=== PATIENT | female | born 1995 | race Two or more races ===

== ENCOUNTER 2024-06-21 18:12 | Emergency (ER) | payer MEDICAID, OTHER | END 2024-06-21 18:59 | disposition left against medical advice (07) | LOC: ER 18:12 | DX: I10 Essential (primary) hypertension (principal); Z53.21 Procedure and treatment not carried out due to patient leaving prior to being seen by health care provider ==

== ENCOUNTER 2024-07-14 16:24 | Inpatient (IN) | payer MEDICAID ==
[~2024-07-14] VITALS: Ht 170.2 cm; Wt 124.6 kg
[2024-07-14 16:51] LABS: Basophils # (auto) 0 10 ^3/uL (0-0.2); Basophils % (auto) 0.4 % (0.0-2.0); Eosinophils # (auto) 0 10 ^3/uL (0-0.8); Eosinophils % (auto) 0.5 % (0.0-7.0); Hemoglobin 14.9 g/dL (12.2-16.2); Lymphocytes # (auto) 2.3 10 ^3/uL (0.4-5.4); Lymphocytes % (auto) 30.4 % (10.0-50.0); Mean Corpuscular Hemoglobin 27.8 pg (28.0-32.0); Mean Corpuscular Volume 81.9 fL (80.0-100.0); Monocytes # (auto) 0.5 10 ^3/uL (0-1.3); Monocytes % (auto) 6.6 % (0.0-12.0); Neutrophils # (auto) 4.7 10 ^3/uL (1.6-8.6); Neutrophils % (auto) 62.1 % (37.0-80.0); Platelet Count (auto) 228 10^3/uL (140-450); Red Blood Cells 5.37 10^6/uL (4.0-5.20); Red Cell Distribution Width 15.7 % (11.8-14.3); White Blood Cell 7.6 10^3/uL (4.4-10.8)
[2024-07-14 17:02] LABS: Chloride 102 mmol/L (98-107); Potassium 3.8 mmol/L (3.5-5.1); Sodium 139 mmol/L (136-145)
[2024-07-14 17:03] LABS: Anion Gap 13 (5-15); Carbon Dioxide 24 mmol/L (20-31)
--- NOTE | 2024-07-14 17:03 | DVH ---
INDICATION: palpitations TECHNIQUE: Frontal view of the chest. COMPARISON: None FINDINGS: Findings:. The heart and mediastinal contours are grossly unremarkable. There is no evidence of pleu ral disease. The lungs are clear. The bony structures of the chest are intact without fracture. IMPRESSION: 1. No evidence of acute disease.
[2024-07-14 17:06] LABS: Calcium 10.5 mg/dL (8.7-10.4)
[2024-07-14 17:08] LABS: BUN/Creatinine Ratio 17.5 (10.0-20.0); Blood Urea Nitrogen 14 mg/dL (9-23); Glucose 101 mg/dL (74-106)
--- NOTE | 2024-07-14 17:09 | ED.PDOC ---
HPI Comments 29 year old female presents to the ED with chief complaint of palpitations. Patient reports that she was prescribed Hydrochlorothiazide after giving to her baby three months ago due to having HTN. Patient relays that she took 12.5mg of Hydrochlorothiazide today and started to experience palpitations. Patient denies any chest pain, SOB, dizziness, headache, N/V, numbness, weakness, or tingling. Chief Complaint: Palpitations Time Seen by MD: 17:03 Reviewed Notes: Nurses Notes, Medications, Allergies Allergies: Coded Allergies: NO KNOWN ALLERGIES (Unverified , 07/14/24) Information Source: Patient Mode of Arrival: Ambulatory Severity: Mild Timing: Hours Duration: Since onset Prehospital treatment: None Cardiac Risk Factors: HTN Associated Signs and Symptoms: Palpitations Past Medical History PAST MEDICAL HISTORY: HTN Surgical History: Denies all surgeries HEAD TRIMMER History: Denies all HEAD TRIMMER Hx Family History Family History: Reviewed,noncontributory to illness Social History Smoker: Non-Smoker Alcohol: Denies ETOH Use Drugs: Denies Drug Use Lives In: Home Constitutional: denies: chills, diaphoresis, fatigue, fever, malaise, sweats, weakness, others EENTM: denies: blurred vision, double vision, ear bleeding, ear discharge, ear drainage, ear pain, ear ringing, eye pain, eye redness, hearing loss, mouth pain, mouth swelling, nasal discharge, nose bleeding, nose congestion, nose pain, photophobia, tearing, throat pain, throat swelling, voice changes, others Respiratory: denies: cough, hemoptysis, orthopnea, SOB at rest, shortness of breath, SOB with excertion, stridor, wheezing, others Cardiovascular: reports: palpitations; denies: chest pain, dizzy spells, diaphoresis, Dyspnea on exertion, edema, irregular heart beat, left arm pain, lightheadedness, PND, syncope, others Gastrointestinal: denies: abdomen distended, abdominal pain, blood streaked bowels, constipated, diarrhea, dysphagia, difficulty swallowing, hematemesis, melena, nausea, poor appetite, poor fluid intake, rectal bleeding, rectal pain, vomiting, others Genitourinary: denies: abnormal vagina bleeding, burning, dyspareunia, dysuria, flank pain, frequency, hematuria, incontinence, pain, , vagina discharge, urgency, others Neurological: denies: dizziness, fainting, headache, left sided numbness, left sided weakness, numbness, paresthesia, pre-existing deficit, right sided numb ness, right sided weakness, seizure, speech problems, tingling, tremors, weakness, others Musculoskeletal: denies: back pain, gout, joint pain, joint swelling, muscle pain, muscle stiffness, neck pain, others Integumetry: denies: bruises, change in color, change in hair/nails, dryness, laceration, lesions, lumps, rash, wounds, others Allergic/Immunocompromised: denies: Difficulty Healing, Frequent Infections, Hives, Itching, others Hematologic/Lymphatic: denies: anemia, blood clots, easy bleeding, easy bruising, swollen glands, others Endocrine: denies: excessive hunger, excessive sweating, excessive thirst, excessive urination, flushing, intolerance to cold, intolerance to heat, unexplained weight gain, unexplained weight loss, others Psychiatric: denies: anxiety, bipolar disorder, depression, hopeless, panic disorder, schizophrenia, sleepless, suicidal, others All Other Systems: Reviewed and Negative Physical Exam General Appearance: No Apparent Distress, Normal HEENT: Normal ENT Inspection, Pharynx Normal, TMs Normal Neck: Full Range of Motion, Non-Tender, Normal, Normal Inspection Respiratory: Chest Non-Tender, Lungs Clear, No Accessory Muscle Use, No Respiratory Distress, Normal Breath Sounds Cardiovascular: No Edema, No JVD, No Murmur, No Gallop, Normal Peripheral Pulses, Tachycardia Breast Exam: Deferred Gastrointestinal: No Organomegaly, Non Tender, No Pulsatile Mass, Normal Bowel Sounds, Soft Genitalia: Deferred Pelvic: Deferred Rectal: Deferred Extremities: No calf tenderness, Normal capillary refill, Normal inspection, Normal range of motion, Non-tender, No pedal edema Musculoskeletal : Apperance: Normal Neurologic: Alert, logistics and planning manager II-XII nml as Tested, No Motor Deficits, Normal Affect, Normal Mood, No Sensory Deficits Cerebellar Function: Normal Reflexes: Normal Skin: Dry, Normal Color, Warm Lymphatic: No Adenopathy Was a procedure done? Was a procedure done?: No CP Differential Dx Differential Diagnosis: MAT, CT, PAC's Differential Diagnosis: HTN Essential, HTN Accelerated Differential Diagnosis: Myocardial Infarction, Pericarditis X-Ray, Labs, Meds, VS Vital Signs Date Time Temp Pulse Resp B/P (MAP) Pulse Ox O2 Delivery O2 Flow Rate FiO2 07/14/24 19:35 133 07/14/24 17:33 126 07/14/24 16:33 98.0 136 18 133/88 (103) 96 98.0 07/14/24 16:31 127 Lab Test 07/14/24 19:32 07/14/24 17:50 07/14/24 16:39 07/14/24 16:36 Range/Units D-Dimer, Quantitative < 0.19 0.0-0.49 mg/L FEU Troponin I High Sensitivity < 3 L < 3 L < 3 L </=34 ng/L White Blood Count 7.6 4.4-10.8 10^3/uL Red Blood Count 5.37 H 4.0-5.20 10^6/uL Hemoglobin 14.9 12.2-16.2 g/dL Hematocrit 44.0 36.0-46.0 % Mean Corpuscular Volume 81.9 80.0-100.0 fL Mean Corpuscular Hemoglobin 27.8 L 28.0-32.0 pg Mean Corpuscular Hemoglobin Concent 34.0 32.0-36.0 g/dL Red Cell Distribution Width 15.7 H 11.8-14.3 % Platelet Count 228 140-450 10^3/uL Mean Platelet Volume 8.9 6.9-10.8 fL Neutrophils (%) (Auto) 62.1 37.0-80.0 % Lymphocytes (%) (Auto) 30.4 10.0-50.0 % Monocytes (%) (Auto) 6.6 0.0-12.0 % Eosinophils (%) (Auto) 0.5 0.0-7.0 % Basophils (%) (Auto) 0.4 0.0-2.0 % Neutrophils # (Auto) 4.7 1.6-8.6 10 ^3/uL Lymphocytes # (Auto) 2.3 0.4-5.4 10 ^3/uL Monocytes # (Auto) 0.5 0-1.3 10 ^3/uL Eosinophils # (Auto) 0 0-0.8 10 ^3/uL Basophils # (Auto) 0 0-0.2 10 ^3/uL Nucleated Red Blood Cells 0.0 % Sodium Level 139 136-145 mmol/L Potassium Level 3.8 3.5-5.1 mmol/L Chloride Level 102 98-107 mmol/L Carbon Dioxide Level 24 20-31 mmol/L Anion Gap 13 5-15 Blood Urea Nitrogen 14 9-23 mg/dL Creatinine 0.80 0.550-1.02 mg/dL Glomerular Filtration Rate Calc 102 >90 mL/min BUN/Creatinine Ratio 17.5 10.0-20.0 Serum Glucose 101 74-106 mg/dL Calcium Level 10.5 H 8.7-10.4 mg/dL B-Type Natriuretic Peptide 1.51 0-100 pg/mL Urine Color Light-yellow Yellow Urine Clarity Turbid H Clear Urine pH 5.5 5.0-9.0 Urine Specific [place] 1.024 1.001-1.035 Urine Protein Trace H Negative Urine Ketones 4+ H Negative Urine Blood 2+ H Negative /uL Urine Nitrite Negative Negative Urine Bilirubin Negative Negative Urine Urobilinogen Normal Negative mg/dL Urine Leukocyte Esterase 1+ Negative /uL Urine RBC 17 0 - 4 /hpf Urine Microscopic WBC 12 H 0-5 /HPF Urine Squamous Epithelial Cells Mod <5 /hpf Urine Bacteria Few H None Seen /hpf Urine Mucus Few None Seen Urine Glucose Normal Normal mg/dL PATIENT: DILLON HAYDEN I ACCT: [id number] UNIT: [id number] : 1995 LOC: ER ROOM / BED: / AGE / SEX: 29 / F ADM STATUS: REG ER SERVICE 1641 ORDERING PHYSICIAN: VIKTOR ROUSSEAU MD PROCEDURE(s): CXRP - CHEST PORTABLE REASON: palpitations ORDER NUMBER(s): [id number], ACCESSION NUMBER(s): [id number] INDICATION: palpitations TECHNIQUE: Frontal view of the chest. COMPARISON: None FINDINGS: Findings:. The heart and mediastinal contours are grossly unremarkable. There is no evidence of pleural disease. The lungs are clear. The bony structures of the chest are intact without fracture. IMPRESSION: 1. No evidence of acute disease. Time of 1ST Reevaluation: 18:03 Reevaluation 1ST: Unchanged Patient Education/Counseling: Diagnosis, Treatment Family Education/Counseling: No Family Present Additional Information Reviewed patient's previous visit(s): 06/21/24 for HTN The following tests were ordered, and results were reviewed by me: CBC, BMP, BNP, EKG, Troponin, UA, CXR Additional information was gathered from interviewing the following independent historian: None I reviewed and agreed with the following test results read by other provider: CXR I discussed treatments and results with medical personnel and: PATIENT Comprehensive systems review obtained and negative except for what is stated in the HPI. Departure 1 Departure Time of Disposition: 20:49 (Patient with worsening palpitations and tachycardia. Patient's D-dimer is negative and a my judgment the patient unlikely to have a P. We will admit patient for further workup and expert consultation) Impression: Primary Impression: Palpitations Additional Impression: Shortness of breath Disposition: ADMITTED INPATIENT Admit to: Med Surg Condition: Guarded Critical Care Note Critical Care Time?: Yes Critical care comment: Palpitations Authorized and Performed by: Viktor Rousseau MD Total critical care time: Approximately 38 minutes Due to a high probability of clinically significant, life threatening deterioration, the patient required my highest level of preparedness to intervene emergently and I personally spent this critical care time directly and personally managing the patient. This critical care time included obtaining a history; examining the patient; pulse oximetry; ordering and review of studies; arranging urgent treatment with development of a management plan; evaluation of patient's response to treatment; frequent reassessment; and, discussions with other providers. This critical care time was performed to assess and manage the high probability of imminent, life-threatening deterioration that could result in multi-organ failure. It was exclusive of separately billable procedures and treating other patients and teaching time. Please see my other sections and the rest of the note for further information on patient assessment and treatment. Stability Stability form required: No Heart Score Heart Score: Heart Score Response (Comments) Value History Slightly Suspicious 0 EKG Normal 0 Age <45 0 Risk Factors 1 or 2 risk factors 1 Troponin Normal limit 0 Total 1 I personally scribed for VIKTOR ROUSSEAU MD ([email or web address]) on 07/14/24 at 17:09. Electronically submitted by Bob Silveira ([email or web address]). I personally scribed for VIKTOR ROUSSEAU MD ([email or web address]) on 07/14/24 at 18:20. Electronically submitted by Prasanna Cabral ([email or web address]). VIKTOR ROUSSEAU MD July 14, 2024 17:09
[2024-07-14 18:43] LABS: Urine Bacteria FEW /hpf (None Seen); Urine Blood 2+ /uL (Negative); Urine Clarity Turbid (Clear); Urine Color Light-Yellow (Yellow); Urine Mucus FEW (None Seen); Urine Protein, UAD TRACE (Negative); Urine Specific Gravity 1.024 (1.001-1.035); Urine Squamous Epithelial Cell MOD /hpf (<5); Urine Urobilinogen Normal (Negative); Urine WBC 12 /HPF (0-5); Urine pH 5.5 (5.0-9.0)
--- NOTE | 2024-07-14 19:36 | ECG ---
[facility] Test Date: 2024-07-14 Test Time: 19:35:06 Pat Name: DILLON HAYDEN Department: ed Room: 0294T Gender: F Conference And Event Organiser: david : 1995 Requested By: VIKTOR STEVENSON Order Number: [id number] Reading MD: Xavi Roth Measurements Intervals [place] Rate: 133 P: 61 IN: 131 QRS: 93 QRSD: 102 T: 40 QT: 315 QTc: 469 Interpretive Statements Sinus tachycardia Left posterior fascicular block Low voltage with right axis deviation Baseline wander in lead(s) II,aVR Electronically Signed On 07-19-2024 11:44:19 PDT by Xavi Roth Please click the below link to view image of tracing.
[2024-07-14] MEDS: SODIUM CHLORIDE 0.9% 1,000 ML IV ONE ×2 (20:30→21:00)
[2024-07-14 21:39] VITALS: PULSE 135; RESP 20; O2SAT 97
[2024-07-14] MEDS ORDERED: NITROGLYCERIN 0.4 MG SL TAB SL PRN (22:15)
[2024-07-14] MEDS ORDERED: MORPHINE SULFATE INJ 2 MG/ml SYRG IV PRN (22:15)
[2024-07-14] MEDS ORDERED: ONDANSETRON HCL 4 MG/2 ML VIAL IV PRN (22:15)
[2024-07-14] MEDS ORDERED: ALPRAZolam 0.25 MG TAB PO PRN (22:15)
[2024-07-14] MEDS ORDERED: ACETAMINOPHEN 325 MG TAB PO PRN (22:15)
--- NOTE | 2024-07-14 22:30 | DVHHP2 ---
History of Present Illness Reason for Visit: Palpitations History of Present Illness 29-year-old female presents for evaluation of palpitations. Patient reports having palpitations intermittently for the past four days. She states the palpitations were more constant today so she presented for further evaluation. She only reports a history of hypertension. Denies chest pain or shortness for breath. No nausea or vomiting. No other acute complaints. Past Medical History Hypertension Past Surgical History Denies Family History Noncontributory Smoke: No ALCOHOL: none Drugs: None Lives: with Family Review of Systems Review of Systems Review of systems are currently negative otherwise addressed in HPI. Allergies: Coded Allergies: NO KNOWN ALLERGIES (Unverified , 07/14/24) Medications Current Medications Medications Dose Ordered Sig/Tyrell Route Start Time Stop Time Status Last Admin Dose Admin Metoprolol Tartrate 25 mg BID PO 07/15/24 10:00 Alprazolam 0.25 mg Q12HP PRN PO 07/14/24 22:15 Ondansetron HCl 4 mg Q4HP PRN IV 07/14/24 22:15 Acetaminophen 650 mg Q6HP PRN PO 07/14/24 22:15 Nitroglycerin 0.4 mg Q5MINP PRN SL 07/14/24 22:15 Morphine Sulfate 2 mg Q30M PRN IV 07/14/24 22:15 Exam Vital Signs Vital Signs Date Time Temp Pulse Resp B/P (MAP) Pulse Ox O2 Delivery O2 Flow Rate FiO2 07/14/24 21:39 135 20 97 Room Air* 0 21 07/14/24 21:33 98.0 98.0 Exam Gen: 29-year-old female in mild distress, morbidly obese Skin: Warm, dry, normal color and texture, no rash. HEENT: Normocephalic atraumatic, mucous membranes moist and pink. Neck: Cervical and supraclavicular nodes normal without enlargement, trachea is midline, thyroid gland is normal without masses. Pulmonary: Clear to auscultation and percussion bilaterally. Cardiac: Sinus tachycardia Abdomen: Soft, nontender, nondistended, bowel sounds present all 4 quadrants, no guarding, no rigidity, no organomegaly. Extremities: No cyanosis, clubbing, no edema Neuro: Cranial nerves II through XII grossly intact, normal affect and speech, no focal motor deficits. Labs/Xrays ORDERING PHYSICIAN: VIKTOR STEVENSON MD PROCEDURE(s): CXRP - CHEST PORTABLE REASON: palpitations ORDER NUMBER(s): [id number], ACCESSION NUMBER(s): [id number] INDICATION: palpitations TECHNIQUE: Frontal view of the chest. COMPARISON: None FINDINGS: Findings:. The heart and mediastinal contours are grossly unremarkable. There is no evidence of pleural disease. The lungs are clear. The bony structures of the chest are intact without fracture. IMPRESSION: 1. No evidence of acute disease. Labs Test 07/14/24 19:32 07/14/24 16:39 07/14/24 16:36 Range/Units D-Dimer, Quantitative < 0.19 0.0-0.49 mg/L FEU Troponin I High Sensitivity < 3 L </=34 ng/L White Blood Count 7.6 4.4-10.8 10^3/uL Red Blood Count 5.37 H 4.0-5.20 10^6/uL Hemoglobin 14.9 12.2-16.2 g/dL Hematocrit 44.0 36.0-46.0 % Mean Corpuscular Volume 81.9 80.0-100.0 fL Mean Corpuscular Hemoglobin 27.8 L 28.0-32.0 pg Mean Corpuscular Hemoglobin Concent 34.0 32.0-36.0 g/dL Red Cell Distribution Width 15.7 H 11.8-14.3 % Platelet Count 228 140-450 10^3/uL Mean Platelet Volume 8.9 6.9-10.8 fL Neutrophils (%) (Auto) 62.1 37.0-80.0 % Lymphocytes (%) (Auto) 30.4 10.0-50.0 % Monocytes (%) (Auto) 6.6 0.0-12.0 % Eosinophils (%) (Auto) 0.5 0.0-7.0 % Basophils (%) (Auto) 0.4 0.0-2.0 % Neutrophils # (Auto) 4.7 1.6-8.6 10 ^3/uL Lymphocytes # (Auto) 2.3 0.4-5.4 10 ^3/uL Monocytes # (Auto) 0.5 0-1.3 10 ^3/uL Eosinophils # (Auto) 0 0-0.8 10 ^3/uL Basophils # (Auto) 0 0-0.2 10 ^3/uL Nucleated Red Blood Cells 0.0 % Sodium Level 139 136-145 mmol/L Potassium Level 3.8 3.5-5.1 mmol/L Chloride Level 102 98-107 mmol/L Carbon Dioxide Level 24 20-31 mmol/L Anion Gap 13 5-15 Blood Urea Nitrogen 14 9-23 mg/dL Creatinine 0.80 0.550-1.02 mg/dL Glomerular Filtration Rate Calc 102 >90 mL/min BUN/Creatinine Ratio 17.5 10.0-20.0 Serum Glucose 101 74-106 mg/dL Calcium Level 10.5 H 8.7-10.4 mg/dL B-Type Natriuretic Peptide 1.51 0-100 pg/mL Urine Color Light-yellow Yellow Urine Clarity Turbid H Clear Urine pH 5.5 5.0-9.0 Urine Specific [place] 1.024 1.001-1.035 Urine Protein Trace H Negative Urine Ketones 4+ H Negative Urine Blood 2+ H Negative /uL Urine Nitrite Negative Negative Urine Bilirubin Negative Negative Urine Urobilinogen Normal Negative mg/dL Urine Leukocyte Esterase 1+ Negative /uL Urine RBC 17 0 - 4 /hpf Urine Microscopic WBC 12 H 0-5 /HPF Urine Squamous Epithelial Cells Mod <5 /hpf Urine Bacteria Few H None Seen /hpf Urine Mucus Few None Seen Urine Glucose Normal Normal mg/dL Assessment/Plan Assessment/Plan Assessment Palpitations Tachycardia Hypertension Morbid obesity UTI Plan Admit the patient to telemetry to the hospitalist Echocardiogram pending TSH pending Start metoprolol Rocephin Continue treatment per orders Plan discussed with: Patient My Orders Orders - TEODORA GODINEZ AGACNP Procedure Category Date Status Time Metoprolol Tartrate PHA 07/15/24 In Process Tablet (Lopressor Ta 10:00 Thyroid Stimulating LAB 07/14/24 In Process Hormone 22:08 Lipid Panel LAB 07/14/24 In Process 22:08 Alprazolam Tablet PHA 07/14/24 In Process (Xanax Tablet) 22:15 Basic Metabolic Panel LAB 07/15/24 Verified 04:00 Admit ADMIT 07/14/24 Transmitted 22:08 Ondansetron Hcl PHA 07/14/24 In Process (Zofran) 22:15 Cardiac DIET 07/15/24 Transmitted Diet-2gna,Lofat,Lochol Breakfast Echo 2d Mode Cardiac US 07/14/24 Logged DOP 22:08 Condition: Fair OTIS 07/14/24 In Process 22:08 Acetaminophen Tablet PHA 07/14/24 In Process (Tylenol Tablet) 22:15 Bedrest With Bathroom OTIS 07/14/24 In Process Privileg 22:08 Nitroglycerin PHA 07/14/24 In Process Sublingual (Ntrostat 22:15 Morphine Sulfate PHA 07/14/24 In Process Injection 22:15 Stat Ekg For Chest OTIS 07/14/24 In Process Pain 22:08 Notify Of Changes OTIS 07/14/24 In Process From Base 22:08 Delivery Representative For [facility] 07/14/24 In Process 24 Hours 22:08 Emergency Dysrhythmia [facility] 07/14/24 In Process Protocol 22:08 Rhythm Strips Once OTIS 07/14/24 In Process Every Shift 22:08 Oxygen By Nasal RT 07/14/24 Transmitted Cannula 22:08 Ceftriaxone Ivpb PHA 07/15/24 Verified Rocephin 09:00 Date of Service: July 14, 2024 Billing Provider: TEODORA GODINEZ Common Visit Codes: [id number] INP/OBS CARE (HIGH) TEODORA GODINEZ July 14, 2024 22:30
[2024-07-14 22:37] LABS: Triglycerides 74 mg/dL (< 150)
[2024-07-14 22:39] LABS: Cholesterol 200 mg/dL (< 200); HDL Cholesterol 59 mg/dL (40-59)
[2024-07-14 22:43] LABS: LDL Cholesterol 127 mg/dL (< 100)
[2024-07-14] MEDS: ALPRAZolam 0.25 MG TAB PO ONE (23:28)
[2024-07-14] MEDS: METOPROLOL TARTRATE 25 MG TAB PO ONE (23:28)
[2024-07-15] VITALS (9 sets, daily range): BP systolic 106–124; BP diastolic 55–74; PULSE 72–91; RESP 16–18; TEMP 97.2–98.2; O2SAT 97–99
[2024-07-15] MEDS ORDERED: HYDR12.59 PO (01:34)
[2024-07-15 06:20] LABS: Anion Gap 11 (5-15); Carbon Dioxide 24 mmol/L (20-31); Chloride 104 mmol/L (98-107); Sodium 139 mmol/L (136-145)
[2024-07-15 06:21] LABS: Calcium 8.8 mg/dL (8.7-10.4)
[2024-07-15 06:26] LABS: BUN/Creatinine Ratio 16.7 (10.0-20.0); Blood Urea Nitrogen 9 mg/dL (9-23); Glucose 75 mg/dL (74-106)
[2024-07-15 06:32] LABS: Potassium 3.4 mmol/L (3.5-5.1)
--- NOTE | 2024-07-15 06:54 | ECG ---
[facility] Test Date: 2024-07-14 Test Time: 16:31:11 Pat Name: DILLON HAYDEN Department: ER Room: 0294T B Gender: F Optical Effects Camera Operator: BETZY : 1995 Requested By: VIKTOR STEVENSON Order Number: [id number] Reading MD: Xavi Roth Measurements Intervals [place] Rate: 127 P: 60 GA: 150 QRS: 92 QRSD: 89 T: 45 QT: 317 QTc: 461 Interpretive Statements Sinus tachycardia Borderline right axis deviation Borderline Q waves in inferior leads Baseline wander in lead(s) II,III,aVF,V3,V4,V5 Electronically Signed On 07-19-2024 11:42:31 PDT by Xavi Roth Please click the below link to view image of tracing.
--- NOTE | 2024-07-15 06:54 | ECG ---
[facility] Test Date: 2024-07-14 Test Time: 17:33:47 Pat Name: DILLON HAYDEN Department: ED Room: 0294T B Gender: F Avionics Manager: ANDRES : 1995 Requested By: VIKTOR STEVENSON Order Number: [id number] Reading MD: Xavi Roth Measurements Intervals [place] Rate: 126 P: 98 WI: 158 QRS: 95 QRSD: 87 T: 48 QT: 309 QTc: 448 Interpretive Statements Sinus tachycardia Borderline right axis deviation Baseline wander in lead(s) II,III,aVR,aVF Electronically Signed On 07-19-2024 11:43:34 PDT by Xavi Roth Please click the below link to view image of tracing.
[2024-07-15] MEDS: cefTRIAXone 1GM/50ML D5W 50 ML IV SCH (09:31)
[2024-07-15] MEDS: METOPROLOL TARTRATE 25 MG TAB PO SCH (09:31)
--- NOTE | 2024-07-15 14:21 | DVHSR ---
APPROVED REPORT EXAM: Two-dimensional and M-mode echocardiogram with Doppler and color Doppler. Blood Pressure: 124/74 mmHg INDICATION Chest Pain RISK FACTORS Height: 5'7", Weight: 251 DIMENSIONS LVDd4.6 (3.8-5.7cm)LA (2D)4.2 (1.9-4.0cm)Aortic Root3.0 (2.0-3.7cm) LVDs2.1 (2.5-4.0cm)LA (MM) (1.9-4.0cm)Aortic Cusp Exc1.9 (1.5-2.0cm) EF (%) 86.0 (55-70%)Rt. Atrium3.4 (1.9-4.0cm)Asc. Aorta cm IVSd1.1 (0.7-1.1cm)RV (D)3.4 (1.8-2.4cm) PWd1.1 (0.7-1.1cm) Mitral Valve MitralMitral Stenosis E wave0.68m/sMV Mean GR.mmHg A wave0.91m/sMV Peak GR.mmHg E/A ratio0.72D MVAcm2 DECEL [id number] 1/2 Timems Aortic Valve Aortic ValveAortic Stenosis V11.56m/Mauro Mean GR.7mmHg V21.80m/Mauro Peak GR.13mmHg LVOT Diameter2.3 (1.8-2.4cm)Doppler AVA3.60cm2 Pulmonic Valve V21.27m/s Other Information Quality : Technically LimitedRhythm : Technically limited study due to body habitus. Conclusion lvef 65% by visual estimate normal rv function normal atria no severe valve abnormalities noted
--- NOTE | 2024-07-15 14:37 | DVHPN2 ---
Reviewed: Care Plan Changes from previous H/P or p: No Changes General: Per HPI Objective Vitals Vital Signs Date Time Temp Pulse Resp B/P (MAP) Pulse Ox O2 Delivery O2 Flow Rate FiO2 07/15/24 13:00 98.2 81 16 106/55 (72) 99 98.2 07/15/24 08:00 Room Air* 0 21 Intake/Output Intake and Output 07/15/24 07:00 Intake Total 2650 ml Balance 2650 ml Intake Oral 650 ml IV Total 2000 ml # Voids 3 General Appearance: Alert, Oriented X3, Cooperative HEENT: Atraumatic Cardiovascular: Regular rate, Normal S1, Normal S2 Medications Current Medications Medications Dose Ordered Sig/Tyrell Route Start Time Stop Time Status Last Admin Dose Admin Metoprolol Tartrate 25 mg BID PO 07/15/24 10:00 07/15/24 09:31 25 MG Alprazolam 0.25 mg Q12HP PRN PO 07/14/24 22:15 Ondansetron HCl 4 mg Q4HP PRN IV 07/14/24 22:15 Acetaminophen 650 mg Q6HP PRN PO 07/14/24 22:15 Nitroglycerin 0.4 mg Q5MINP PRN SL 07/14/24 22:15 Morphine Sulfate 2 mg Q30M PRN IV 07/14/24 22:15 Ceftriaxone Sodium 50 ml @ 100 mls/hr DAILY@09 IV 07/15/24 09:00 07/15/24 09:31 100 MLS/HR Laboratory Results Laboratory Tests 07/14/24 16:39 07/15/24 05:49 Chemistry Test 07/14/24 16:39 07/15/24 05:49 Calcium Level 10.5 mg/dL (8.7-10.4) H 8.8 mg/dL (8.7-10.4) Coagulation Test 07/14/24 19:32 D-Dimer, Quantitative < 0.19 mg/L FEU (0.0-0.49) Lipid panel Test 07/14/24 19:32 Cholesterol Level 200 mg/dL (< 200) H HDL Cholesterol 59 mg/dL (40-59) Triglycerides Level 74 mg/dL (< 150) Cardiac Markers Test 07/14/24 16:39 B-Type Natriuretic Peptide 1.51 pg/mL (0-100) HgA1c, TSH Test 07/14/24 19:32 Thyroid Stimulating Hormone (TSH) 0.62 uIU/mL (0.55-4.78) Urinalysis Test 07/14/24 16:36 Urine Color Light-yellow (Yellow) Urine Clarity Turbid (Clear) H Urine pH 5.5 (5.0-9.0) Urine Specific [place] 1.024 (1.001-1.035) Urine Protein Trace (Negative) H Urine Ketones 4+ (Negative) H Urine Blood 2+ /uL (Negative) H Urine Nitrite Negative (Negative) Urine Bilirubin Negative (Negative) Urine Urobilinogen Normal mg/dL (Negative) Urine Leukocyte Esterase 1+ /uL (Negative) Urine RBC 17 /hpf (0 - 4) Urine Microscopic WBC 12 /HPF (0-5) H Urine Squamous Epithelial Cells Mod /hpf (<5) Urine Bacteria Few /hpf (None Seen) H Urine Mucus Few (None Seen) Urine Glucose Normal mg/dL (Normal) Labs and/or images reviewed: Labs reviewed by me, Image(s) reviewed by me Assessment/Plan Assessment/Plan Palpitations Tachycardia Hypertension HLD Morbid obesity UTI recent , currently breast feeding Plan Echocardiogram per cardio TSH ordered Start metoprolol Rocephin Continue treatment per orders pending evaluation by cardiology Plan discussed with: Patient My Orders Orders - RHONDA BURROWS DO Procedure Category Date Status Time * Cardiology Consult CONS 07/15/24 Verified 14:26 Date of Service: July 15, 2024 Billing Provider: RHONDA BURROWS DO Common Visit Codes: [id number] INP/OBS CARE(HIGH) RHONDA BURROWS DO July 15, 2024 14:37
--- NOTE | 2024-07-15 22:12 | DVHINCON2 ---
Date of service: July 15, 2024 Referring Physician Bev Reason for Consultation Palpitations, Chest pain History of Present Illness This is a 29 year old female with a PMH of HTN who presents to the ED with a complaint of heart palpitations. Patient reports that she was prescribed Hydrochlorothiazide after giving to her baby three months ago due to having HTN. Patient relays that she took 12.5mg of Hydrochlorothiazide today and started to experience palpitations. EKG shows tachycardia at 133. CBC is unremarkable. D-dimer <0.19. Troponin is negative. K 3.4, [id number], LDL 127. Chest x-ray showed NAD. Patient was admitted to the hospital. I am asked to consult on this patient. Family History: Patient reports no known family medical history. Allergies: Coded Allergies: NO KNOWN ALLERGIES (Unverified , 07/14/24) Home Meds Reported Medications Hydrochlorothiazide (Hydrochlorothiazide) 12.5 Mg Cap, 1 CAP PO DAILY 07/15/24 Current Medications Current Medications Medications (Trade) Dose Ordered Sig/Tyrell Route PRN Reason Start Time Stop Time Status Last Admin Metoprolol Tartrate (Lopressor Tablet) 25 mg BID PO 07/15/24 10:00 07/15/24 09:31 Alprazolam (Xanax Tablet) 0.25 mg Q12HP PRN PO ANXIETY 07/14/24 22:15 Ondansetron HCl (Zofran) 4 mg Q4HP PRN IV NAUSEA / VOMITING 07/14/24 22:15 Acetaminophen (Tylenol Tablet) 650 mg Q6HP PRN PO PAIN SCALE 1-3 OR TEMP>100.4 07/14/24 22:15 Nitroglycerin (Ntrostat Sublingual) 0.4 mg Q5MINP PRN SL FOR CHEST PAIN 07/14/24 22:15 Morphine Sulfate 2 mg Q30M PRN IV FOR CHEST PAIN 07/14/24 22:15 Ceftriaxone Sodium 50 ml @ 100 mls/hr DAILY@09 IV 07/15/24 09:00 07/15/24 09:31 Review of Systems Constitutional: denies: chills, diaphoresis, fatigue, fever, malaise, sweats, weakness, others EENTM: denies: blurred vision, double vision, ear bleeding, ear discharge, ear drainage, ear pain, ear ringing, eye pain, eye redness, hearing loss, mouth pain, mouth swelling, nasal discharge, nose bleeding, nose congestion, nose pain, photophobia, tearing, throat pain, throat swelling, voice changes, others Respiratory: denies: cough, hemoptysis, orthopnea, SOB at rest, shortness of breath, SOB with excertion, stridor, wheezing, others Cardiovascular: reports: palpitations; denies: chest pain, dizzy spells, diaphoresis, Dyspnea on exertion, edema, irregular heart beat, left arm pain, lightheadedness, PND, syncope, others Gastrointestinal: denies: abdomen distended, abdominal pain, blood streaked bowels, constipated, diarrhea, dysphagia, difficulty swallowing, hematemesis, melena, nausea, poor appetite, poor fluid intake, rectal bleeding, rectal pain, vomiting, others Genitourinary: denies: abnormal vagina bleeding, burning, dyspareunia, dysuria, flank pain, frequency, hematuria, incontinence, pain, , vagina discharge, urgency, others Neurological: denies: dizziness, fainting, headache, left sided numbness, left sided weakness, numbness, paresthesia, pre-existing deficit, right sided numbness, right sided weakness, seizure, speech problems, tingling, tremors, weakness, others Musculoskeletal: denies: back pain, gout, joint pain, joint swelling, muscle pain, muscle stiffness, neck pain, others Integumetry: denies: bruises, change in color, change in hair/nails, dryness, laceration, lesions, lumps, rash, wounds, others Allergic/Immunocompromised: denies: Difficulty Healing, Frequent Infections, Hives, Itching, others Hematologic/Lymphatic: denies: anemia, blood clots, easy bleeding, easy bruising, swollen glands, others Endocrine: denies: excessive hunger, excessive sweating, excessive thirst, excessive urination, flushing, intolerance to cold, intolerance to heat, unexplained weight gain, unexplained weight loss, others Psychiatric: denies: anxiety, bipolar disorder, depression, hopeless, panic disorder, schizophrenia, sleepless, suicidal, others All Other Systems: Reviewed and Negative Vital Signs Vital Signs Date Time Temp Pulse Resp B/P (MAP) Pulse Ox O2 Delivery O2 Flow Rate FiO2 07/15/24 13:00 98.2 81 16 106/55 (72) 99 98.2 07/15/24 08:00 Room Air* 0 21 Physical Exam GENERAL: Alert and oriented x 3. No acute distress. Obese. EYES: PERRL, EOMI. Anicteric. HENT: Moist mucous membranes. LUNGS: Clear to auscultation bilaterally. CARDIOVASCULAR: Regular rate and rhythm. ABDOMEN: Soft, nontender and nondistended. EXTREMITIES: No edema. NEUROLOGIC: No focal neurological deficits. SKIN: Warm, dry. Labs/Diagnostic Data Labs Test 07/15/24 05:49 07/14/24 19:32 07/14/24 16:39 07/14/24 16:36 Range/Units Sodium Level 139 136-145 mmol/L Potassium Level 3.4 L 3.5-5.1 mmol/L Chloride Level 104 98-107 mmol/L Carbon Dioxide Level 24 20-31 mmol/L Anion Gap 11 5-15 Blood Urea Nitrogen 9 9-23 mg/dL Creatinine 0.54 #L 0.550-1.02 mg/dL Glomerular Filtration Rate Calc 127 >90 mL/min BUN/Creatinine Ratio 16.7 10.0-20.0 Serum Glucose 75 74-106 mg/dL Calcium Level 8.8 8.7-10.4 mg/dL D-Dimer, Quantitative < 0.19 0.0-0.49 mg/L FEU Troponin I High Sensitivity < 3 L </=34 ng/L Triglycerides Level 74 < 150 mg/dL Cholesterol Level 200 H < 200 mg/dL LDL Cholesterol 127 H < 100 mg/dL HDL Cholesterol 59 40-59 mg/dL Thyroid Stimulating Hormone (TSH) 0.62 0.55-4.78 uIU/mL White Blood Count 7.6 4.4-10.8 10^3/uL Red Blood Count 5.37 H 4.0-5.20 10^6/uL Hemoglobin 14.9 12.2-16.2 g/dL Hematocrit 44.0 36.0-46.0 % Mean Corpuscular Volume 81.9 80.0-100.0 fL Mean Corpuscular Hemoglobin 27.8 L 28.0-32.0 pg Mean Corpuscular Hemoglobin Concent 34.0 32.0-36.0 g/dL Red Cell Distribution Width 15.7 H 11.8-14.3 % Platelet Count 228 140-450 10^3/uL Mean Platelet Volume 8.9 6.9-10.8 fL Neutrophils (%) (Auto) 62.1 37.0-80.0 % Lymphocytes (%) (Auto) 30.4 10.0-50.0 % Monocytes (%) (Auto) 6.6 0.0-12.0 % Eosinophils (%) (Auto) 0.5 0.0-7.0 % Basophils (%) (Auto) 0.4 0.0-2.0 % Neutrophils # (Auto) 4.7 1.6-8.6 10 ^3/uL Lymphocytes # (Auto) 2.3 0.4-5.4 10 ^3/uL Monocytes # (Auto) 0.5 0-1.3 10 ^3/uL Eosinophils # (Auto) 0 0-0.8 10 ^3/uL Basophils # (Auto) 0 0-0.2 10 ^3/uL Nucleated Red Blood Cells 0.0 % B-Type Natriuretic Peptide 1.51 0-100 pg/mL Urine Color Light-yellow Yellow Urine Clarity Turbid H Clear Urine pH 5.5 5.0-9.0 Urine Specific [place] 1.024 1.001-1.035 Urine Protein Trace H Negative Urine Ketones 4+ H Negative Urine Blood 2+ H Negative /uL Urine Nitrite Negative Negative Urine Bilirubin Negative Negative Urine Urobilinogen Normal Negative mg/dL Urine Leukocyte Esterase 1+ Negative /uL Urine RBC 17 0 - 4 /hpf Urine Microscopic WBC 12 H 0-5 /HPF Urine Squamous Epithelial Cells Mod <5 /hpf Urine Bacteria Few H None Seen /hpf Urine Mucus Few None Seen Urine Glucose Normal Normal mg/dL Assessment Palpitations. Tachycardia. Hypertension. Morbid obesity. UTI. Plan/Recommendation I agree with your ongoing assessment and care of plan. Telemetry reviewed. Echocardiogram. IV antibiotics as ordered. Metoprolol. Morphine for pain management. Nitro SL. Additional plan as per the hospital course. A total of 45 minutes was spent reviewing the patient record, examining the patient, making a diagnostic and therapeutic plan, discussing this plan with medical personnel, following up on diagnostic studies and following the patient for clinical stability excluding any and all procedures. At least 50% of this time was spent in direct, [id number] contact. Plan discussed with: Patient ANIBAL BANERJEE MD July 15, 2024 15:03
[2024-07-16 01:00] VITALS: BP 127/67; PULSE 85; RESP 17; TEMP 97.6; O2SAT 98
[2024-07-16 05:00] VITALS: BP 123/66; PULSE 88; RESP 17; TEMP 98; O2SAT 100
[2024-07-16 08:00] VITALS: PULSE 89
[2024-07-16 13:00] VITALS: BP 128/77; PULSE 79; RESP 16; TEMP 98.2; O2SAT 98
[2024-07-16] MEDS ORDERED: MET25T PO (14:38)
--- NOTE | 2024-07-16 14:40 | DVHDS2 ---
Discharge Summary Date of Admission July 14, 2024 at 22:08 Date of Discharge: July 16, 2024 Labs/Diagnostic Data: Laboratory Results Test 07/15/24 05:49 07/14/24 19:32 07/14/24 16:39 07/14/24 16:36 Sodium Level 139 mmol/L (136-145) Potassium Level 3.4 mmol/L (3.5-5.1) Chloride Level 104 mmol/L (98-107) Carbon Dioxide Level 24 mmol/L (20-31) Anion Gap 11 (5-15) Blood Urea Nitrogen 9 mg/dL (9-23) Creatinine 0.54 mg/dL (0.550-1.02) Glomerular Filtration Rate Calc 127 mL/min (>90) BUN/Creatinine Ratio 16.7 (10.0-20.0) Serum Glucose 75 mg/dL (74-106) Calcium Level 8.8 mg/dL (8.7-10.4) D-Dimer, Quantitative < 0.19 mg/L FEU (0.0-0.49) Troponin I High Sensitivity < 3 ng/L (</=34) Triglycerides Level 74 mg/dL (< 150) Cholesterol Level 200 mg/dL (< 200) LDL Cholesterol 127 mg/dL (< 100) HDL Cholesterol 59 mg/dL (40-59) Thyroid Stimulating Hormone (TSH) 0.62 uIU/mL (0.55-4.78) White Blood Count 7.6 10^3/uL (4.4-10.8) Red Blood Count 5.37 10^6/uL (4.0-5.20) Hemoglobin 14.9 g/dL (12.2-16.2) Hematocrit 44.0 % (36.0-46.0) Mean Corpuscular Volume 81.9 fL (80.0-100.0) Mean Corpuscular Hemoglobin 27.8 pg (28.0-32.0) Mean Corpuscular Hemoglobin Concent 34.0 g/dL (32.0-36.0) Red Cell Distribution Width 15.7 % (11.8-14.3) Platelet Count 228 10^3/uL (140-450) Mean Platelet Volume 8.9 fL (6.9-10.8) Neutrophils (%) (Auto) 62.1 % (37.0-80.0) Lymphocytes (%) (Auto) 30.4 % (10.0-50.0) Monocytes (%) (Auto) 6.6 % (0.0-12.0) Eosinophils (%) (Auto) 0.5 % (0.0-7.0) Basophils (%) (Auto) 0.4 % (0.0-2.0) Neutrophils # (Auto) 4.7 10 ^3/uL (1.6-8.6) Lymphocytes # (Auto) 2.3 10 ^3/uL (0.4-5.4) Monocytes # (Auto) 0.5 10 ^3/uL (0-1.3) Eosinophils # (Auto) 0 10 ^3/uL (0-0.8) Basophils # (Auto) 0 10 ^3/uL (0-0.2) Nucleated Red Blood Cells 0.0 % B-Type Natriuretic Peptide 1.51 pg/mL (0-100) Urine Color Light-yellow (Yellow) Urine Clarity Turbid (Clear) Urine pH 5.5 (5.0-9.0) Urine Specific [place] 1.024 (1.001-1.035) Urine Protein Trace (Negative) Urine Ketones 4+ (Negative) Urine Blood 2+ /uL (Negative) Urine Nitrite Negative (Negative) Urine Bilirubin Negative (Negative) Urine Urobilinogen Normal mg/dL (Negative) Urine Leukocyte Esterase 1+ /uL (Negative) Urine RBC 17 /hpf (0 - 4) Urine Microscopic WBC 12 /HPF (0-5) Urine Squamous Epithelial Cells Mod /hpf (<5) Urine Bacteria Few /hpf (None Seen) Urine Mucus Few (None Seen) Urine Glucose Normal mg/dL (Normal) Other Laboratory Tests 07/15/24 05:49 07/14/24 16:39 Brief Hx & Hospital Course: Palpitations Tachycardia Hypertension HLD Morbid obesity UTI recent , currently breast feeding Plan Echocardiogram per cardio TSH ordered Start metoprolol Rocephin Continue treatment per orders echo resulted and LVEF is >60% i discussed with pt and she agreed to be discharged Condition at Discharge: Fair Final Diagnosis/Problems List see abo e Discharge Disposition: Home Discharge Instruct/Medications Diet: Cardiac 2g Na,low cholest Activity: No Restrictions, As Tolerated Discharge Statement: "Patient was advised to return to the ER or call 911 if any headaches, dizziness, shortness of breath, chest pain, abdominal pain, bleeding, fevers, or worsening of medical condition. Patient was counseled about treatment plan, medications, possible side effects, patientverbalized understanding. All questions were answered to the best of my ability. This discharge took greater then 30 minutes in planning, reviewing documentation, counseling the patient, and discussing with other team members." ASSESSMENT ASSESSMENT Assessment Date of Service: July 16, 2024 Billing Provider: RHONDA BURROWS DO Common Visit Codes: 36529-DSS/OBS DISCH DAY >30min RHONDA BURROWS DO July 16, 2024 14:40
[2024-07-16 15:32] VITALS: BP 124/74; PULSE 68
--- NOTE | 2024-07-16 19:37 | DVHPN2 ---
Progress Note - Dictate Date Seen: July 16, 2024 Medical Necessity Reason Pt with a Central, PICC or Fol: No Subjective Patient was seen and evaluated in follow up. Patient is complaining of generalized pain. Patient is refusing Metoprolol. Patient's BP has improved since admission. Telemetry reviewed. vital signs Vital Sign Date Time Temp Pulse Resp B/P (MAP) Pulse Ox O2 Delivery O2 Flow Rate FiO2 07/16/24 08:25 68 124/74 07/16/24 08:00 Room Air* 0 21 07/16/24 05:00 98.0 17 100 98.0 Total Intake and Output 07/15/24 07/15/24 07/16/24 15:00 23:00 07:00 Intake Total 50 ml 850 ml 750 ml Balance 50 ml 850 ml 750 ml medications Current Medications Medications Dose Ordered Sig/Tyrell Route Start Time Stop Time Status Last Admin Dose Admin Metoprolol Tartrate 25 mg BID PO 07/15/24 10:00 07/15/24 09:31 25 MG Alprazolam 0.25 mg Q12HP PRN PO 07/14/24 22:15 Ondansetron HCl 4 mg Q4HP PRN IV 07/14/24 22:15 Acetaminophen 650 mg Q6HP PRN PO 07/14/24 22:15 Nitroglycerin 0.4 mg Q5MINP PRN SL 07/14/24 22:15 Morphine Sulfate 2 mg Q30M PRN IV 07/14/24 22:15 Ceftriaxone Sodium 50 ml @ 100 mls/hr DAILY@09 IV 07/15/24 09:00 07/16/24 08:25 100 MLS/HR objective GENERAL: Alert and oriented x 3. No acute distress. Obese. EYES: PERRL, EOMI. Anicteric. HENT: Moist mucous membranes. LUNGS: Clear to auscultation bilaterally. CARDIOVASCULAR: Regular rate and rhythm. ABDOMEN: Soft, nontender and nondistended. EXTREMITIES: No edema. NEUROLOGIC: No focal neurological deficits. SKIN: Warm, dry. laboratory and microbiology Laboratory Tests 07/15/24 05:49 07/14/24 16:39 Test 07/15/24 05:49 Range/Units Serum Glucose 75 74-106 mg/dL Problem List Palpitations. Tachycardia. Hypertension. Morbid obesity. UTI. Assessment/Plan Continued all current supportive medical care. Echocardiogram. IV antibiotics as ordered. Metoprolol. Morphine for pain management. Nitro SL. Additional plan as per the hospital course. Plan discussed with: Patient ANIBAL BANERJEE MD July 16, 2024 12:23
== END 2024-07-16 16:11 | disposition home or self-care (01) | DRG 207 ==
LOC: ER 16:24 → OVERFLOW 22:08 → TELE-WESTW 07-15 01:20
PROVIDERS: ADMIT Internal Medicine; ATTEND Internal Medicine
DX: R00.2 Palpitations (principal); N30.01 Acute cystitis with hematuria; E66.01 Morbid (severe) obesity due to excess calories; I10 Essential (primary) hypertension; Z68.39 Body mass index [BMI] 39.0-39.9, adult; I44.5 Left posterior fascicular block
CPT/HCPCS: 36415; 71045; 80048; 80061; 81001; 83880; 84443; 84484; 85025; 85379; 93005; 93306; 96360; 96361; 99291; G0378